=== PATIENT | female | born 1950 | race Caucasian/White ===

== ENCOUNTER 2017-08-27 19:55 | Emergency (ER) | payer MEDICARE ==
[~2017-08-27] VITALS: Ht 160 cm; Wt 78.4 kg
[2017-08-27 20:03] VITALS: BP 172/118
[2017-08-27] MEDS ORDERED: KETOROLAC 30 MG/1 ML ONE (20:58)
[2017-08-27] MEDS ORDERED: KETOROLAC 30 MG/1 ML IM ONE (21:00)
[2017-08-27] MEDS ORDERED: OXYcodone/APAP 5/325MG TABLET ONE (21:09)
[2017-08-27] MEDS ORDERED: OXYcodone/APAP 5/325MG TABLET PO ONE (21:30)
== END 2017-08-27 21:48 | disposition home or self-care (01) ==
LOC: ED 20:53
DX: M19.042 Primary osteoarthritis, left hand (principal); I10 Essential (primary) hypertension
CPT/HCPCS: 73140; 96372; 99284; J1885; J7512

== ENCOUNTER 2017-08-29 14:51 | Day surgery (SDC) | payer MEDICARE ==
[~2017-08-29] VITALS: Ht 158.8 cm; Wt 75.0 kg
[2017-08-29] MEDS ORDERED: LACTATED RINGERS 1,000 ML IV SCH (15:50)
[2017-08-29 15:52] VITALS: BP 160/82
[2017-08-29] MEDS ORDERED: LIDOCAINE-MPF 1%, 2ML ONE (15:58)
[2017-08-29] MEDS ORDERED: LIDOCAINE-MPF 1%, 2ML INFIL ONE (16:00)
[2017-08-29] MEDS ORDERED: CARV3.1212 PO (16:28)
[2017-08-29] MEDS ORDERED: LACT1CAP20 PO (16:28)
[2017-08-29] MEDS ORDERED: AMLO2.5T2 PO (16:28)
[2017-08-29] MEDS ORDERED: CHOL100011 PO (16:28)
[2017-08-29] MEDS ORDERED: OMEG100023 PO (16:28)
[2017-08-29] MEDS ORDERED: MV W1TAB PO (16:28)
[2017-08-29 16:46] LABS: ALANINE AMINOTRANSFERASE 25 U/L (12-78); ALBUMIN 3.7 g/dL (3.4-5.0); ANION GAP 9 mmol/L (5-15); CALCIUM 9.4 mg/dL (8.5-10.1); CHLORIDE 104 mmol/L (98-107); CREATININE 0.63 mg/dL (0.55-1.02)
[2017-08-29 16:51] LABS: ALKALINE PHOSPHATASE 80 U/L (45-117); BILIRUBIN,TOTAL 0.4 mg/dL (0.2-1.0); TOTAL PROTEIN 7.8 g/dL (6.4-8.2)
[2017-08-29] MEDS ORDERED: FENTANYL PF 100 MCG/2ML ONE (17:42)
[2017-08-29] MEDS ORDERED: MIDAZOLAM 1 MG/ML, 2ML ONE (17:42)
[2017-08-29] MEDS ORDERED: PROPOFOL 50 ML ONE (17:43)
[2017-08-29] MEDS ORDERED: KETOROLAC 30 MG/1 ML ONE (17:46)
[2017-08-29] MEDS ORDERED: ONDANSETRON 2MG/ML, 2ML ONE (17:46)
[2017-08-29] MEDS ORDERED: BACITRACIN 50,000 UNIT ONE (18:08)
[2017-08-29] MEDS ORDERED: CLINDAMYCIN 150 MG/ML, 6ML ONE (18:11)
[2017-08-29] MEDS ORDERED: ONDANSETRON 2MG/ML, 2ML IVPush PRN (18:30)
[2017-08-29] MEDS ORDERED: METOPROLOL 1 MG/ML, 5ML IV PRN (18:30)
[2017-08-29] MEDS ORDERED: ALBUTEROL SULFATE 2.5 MG/3 ML NPPB PRN (18:30)
[2017-08-29] MEDS ORDERED: PROMETHAZINE 25 MG/ML, 1ML IV PRN (18:30)
[2017-08-29] MEDS ORDERED: FENTANYL PF 100 MCG/2ML IV PRN (18:30)
[2017-08-29] MEDS ORDERED: LABETALOL 5MG/ML, 20ML IV PRN (18:30)
[2017-08-29] MEDS ORDERED: PROMETHAZINE 12.5 MG SUPP PR PRN (18:30)
[2017-08-29] MEDS ORDERED: EPHEDRINE 50 MG/ML, 1ML IVPush PRN (18:30)
[2017-08-29] MEDS ORDERED: morphine SULFATE 10 MG/ML, 1ML IV PRN (18:30)
[2017-08-29] MEDS ORDERED: MEPERIDINE/PF 25MG/0.5ML IVPush PRN (18:30)
[2017-08-29] MEDS ORDERED: DIAZEPAM 5 MG/ML, 2ML IVPush PRN (18:30)
[2017-08-29] MEDS ORDERED: ACETAMINOPHEN 325 MG TABLET PO PRN (18:30)
[2017-08-29] MEDS ORDERED: OXYcodone 5 MG/5 ML ORAL.SOL UDC PO PRN (18:30)
[2017-08-29] MEDS ORDERED: MIDAZOLAM 1 MG/ML, 2ML IV PRN (18:30)
[2017-08-29] MEDS ORDERED: hydrALAzine 20 MG/ML, 1ML IV PRN (18:30)
[2017-08-29] MEDS ORDERED: DIPHENHYDRAMINE 25 MG CAPSULE PO ONE (19:00)
[2017-08-29] MEDS ORDERED: OXYcodone 5 MG/5 ML ORAL.SOL UDC ONE (19:03)
[2017-08-29] MEDS ORDERED: ACETAMINOPHEN 650 MG/20.3 ML UDC ONE (19:03)
[2017-08-29] MEDS ORDERED: ONDANSETRON ODT 4 MG PO PRN (21:00)
[2017-08-29] MEDS ORDERED: ONDANSETRON 2MG/ML, 2ML IV PRN (21:00)
[2017-08-29] MEDS ORDERED: PROMETHAZINE 25 MG/ML, 1ML IM PRN (21:00)
[2017-08-29] MEDS ORDERED: OXYcodone/APAP 5/325MG TABLET PO PRN (21:00)
[2017-08-29] MEDS ORDERED: KETOROLAC 30 MG/1 ML IV SCH (21:00)
== END 2017-08-29 22:45 | disposition home or self-care (01) ==
LOC: OR 14:51 → 4NOR 19:45 → OR 22:45
PROVIDERS: ATTEND Orthopaedic Surgery
DX: M65.842 Other synovitis and tenosynovitis, left hand (principal); F17.210 Nicotine dependence, cigarettes, uncomplicated; I10 Essential (primary) hypertension; Z88.1 Allergy status to other antibiotic agents; Z88.8 Allergy status to other drugs, medicaments and biological substances
CPT/HCPCS: 26055; 36415; 80053; 87070; 87075; 87077; 87186; 87205; 93005; J1885; J2250; J2405; J2704; J3010; J3490; J7120; Q0163

== ENCOUNTER → 2018-01-23 | Outpatient (CLI) | payer MEDICARE ==
[~2018-01-23] MED LIST: AMLO2.5T2 PO; CARV3.1212 PO; CHOL100011 PO; LACT1CAP20 PO; MV W1TAB PO; OMEG100023 PO
== END | disposition home or self-care (01) ==
LOC: CFH 07:55
PROVIDERS: ATTEND Nurse Practitioner Family
DX: M51.36 Other intervertebral disc degeneration, lumbar region (principal); M48.061 Spinal stenosis, lumbar region without neurogenic claudication
CPT/HCPCS: 72148; 82565

== ENCOUNTER 2019-10-16 11:25 | Outpatient (CLI) | payer MEDICARE ==
[2019-10-16] MEDS ORDERED: OMNIPAQUE 350 MG/ML, 100ML BOTTLE ONE (13:00)
[2019-10-16] MEDS ORDERED: SINCALIDE (KINEVAC) 5 MCG ONE (14:19)
== END 2019-10-16 23:59 | disposition home or self-care (01) ==
LOC: RAD 11:25
PROVIDERS: ATTEND Nurse Practitioner Family
DX: N28.1 Cyst of kidney, acquired (principal); K76.89 Other specified diseases of liver; M51.36 Other intervertebral disc degeneration, lumbar region; M41.86 Other forms of scoliosis, lumbar region
CPT/HCPCS: 74160; 78227; A9537; J2805; Q9967

== ENCOUNTER → 2019-12-26 | Outpatient (CLI) | payer MEDICARE | END | disposition home or self-care (01) | LOC: CVU 15:18 | PROVIDERS: ATTEND Internal Medicine Cardiovascular Disease | DX: I08.0 Rheumatic disorders of both mitral and aortic valves (principal) | CPT/HCPCS: 93306 ==